=== PATIENT | female | born 2005 | race Caucasian/White ===

== ENCOUNTER 2024-07-08 07:55 | Emergency (ER) | payer MEDICAID ==
[~2024-07-08] VITALS: Ht 167.6 cm; Wt 45.0 kg
[2024-07-08 08:12] VITALS: O2SAT 99
[2024-07-08] MEDS: ONDANSETRON 4MG ODT PO STA (08:32)
[2024-07-08 08:39] LABS: BASOPHILS % 0.3 % (0.0-2.0); EOSINOPHILS % 0.5 % (0.0-5.0); HEMATOCRIT. 41.4 % (36.0-48.0); HEMOGLOBIN. 13.5 g/dL (12.0-16.0); LYMPHOCYTES % 11.9 % (20.0-50.0); MEAN CORPUSCULAR HEMOGLOBIN 31.4 pg (28.0-32.0); MEAN CORPUSCULAR HGB CONC 32.7 g/dL (31.0-37.0); MEAN CORPUSCULAR VOLUME 96.2 fL (81.0-99.0); MONOCYTES % 5.2 % (2.0-8.0); NEUTROPHILS % 82.1 % (40.0-76.0); PLATELET 204 x1000/uL (130-400); RED BLOOD CELL COUNT 4.31 mill/uL (4.2-5.4); RED CELL DISTRIBUTION WIDTH 13.6 % (11.6-14.6); WHITE BLOOD COUNT 8.1 x1000/uL (4.5-11.0)
[2024-07-08 08:46] LABS: CHLORIDE 108 mEq/L (98-107); POTASSIUM 3.7 mEq/L (3.5-5.1); SODIUM 139 mEq/L (136-145)
[2024-07-08 08:47] LABS: CALCIUM 9.7 mg/dL (8.7-10.4); CARBON DIOXIDE 26 mEq/L (21-32)
[2024-07-08 08:52] LABS: CREATININE 0.8 mg/dL (0.6-1.0); GLUCOSE 91 mg/dL (70-105); UREA NITROGEN BLOOD 12 mg/dL (9-23)
[2024-07-08] MEDS: DICYCLOMINE HCL 20MG TABLET PO STA (08:52)
[2024-07-08 08:54] LABS: ALANINE AMINOTRANSFERASE 25 IU/L (10-49); ALBUMIN 4.7 g/dL (3.2-4.8); ASPARTATE AMINOTRANSFERASE 30 IU/L (<34); BILIRUBIN DIRECT 0.1 mg/dL (<=3.0); BILIRUBIN TOTAL 0.5 mg/dL (0.1-1.0); PROTEIN TOTAL 7.1 g/dL (6.0-8.3)
[2024-07-08 08:58] LABS: HCG SCREEN NEGATIVE
[2024-07-08] MEDS ORDERED: DICY20TA2 MT (10:34)
[2024-07-08] MEDS ORDERED: ONDA-239 PO (10:34)
[2024-07-08 10:44] VITALS: BP 118/70; PULSE 81; RESP 16; TEMP 37.05852; O2SAT 99
== END 2024-07-08 11:22 | disposition home or self-care (01) ==
LOC: ER 07:55
DX: R19.7 Diarrhea, unspecified (principal)
CPT/HCPCS: 99283; 80076; 80048; 84703; 83690; 85025; 36415; Q0162